=== PATIENT | female | born 1990 | race Caucasian/White ===

== ENCOUNTER 2017-11-09 22:25 | Emergency (ER) | payer MEDICAID ==
[~2017-11-09] VITALS: Ht 162.6 cm; Wt 118.8 kg
[2017-11-09 23:09] LABS: Urine Bacteria FEW /hpf (None Seen); Urine Blood Negative /uL (Negative); Urine Mucus FEW (None Seen); Urine Specific Gravity 1.027 (1.001-1.035); Urine WBC 16 /hpf (0 - 5)
[2017-11-09 23:24] LABS: Basophils # (auto) 0.1 uL; Basophils % (auto) 0.6 % (0.0-2.0); Eosinophils # (auto) 0.1 uL; Eosinophils % (auto) 1.1 % (0.0-7.0); Hematocrit 45.6 % (36.0-46.0); Hemoglobin 14.9 g/dL (12.2-16.2); Lymphocytes # (auto) 2.2 uL; Mean Corpuscular Hemoglobin 26.5 pg (28.0-32.0); Mean Corpuscular Hgb Conc. 32.6 g/dL (32.0-36.0); Mean Corpuscular Volume 81.2 fL (80.0-100.0); Monocytes % (auto) 7.9 % (0.0-12.0); Neutrophils # (auto) 9.5 uL; Neutrophils % (auto) 73.4 % (37.0-80.0); Platelet Count (auto) 321 10^3/uL (140-450); Red Blood Cells 5.62 10^6/uL (4.0-5.20); Red Cell Distribution Width 14.6 % (11.8-14.3); White Blood Cell 12.9 10^3/uL (4.4-10.8)
[2017-11-09 23:34] LABS: INR 0.96 (0.9-1.15); Partial Thromboplastin Time 31.5 sec (23.78-33.04); Prothrombin Time 10.3 sec (9.27-12.13)
[2017-11-09 23:38] LABS: Calcium 8.8 mg/dL (8.5-10.1); Potassium 3.8 mmol/L (3.5-5.1)
[2017-11-09 23:40] LABS: BUN/Creatinine Ratio 14.3
[2017-11-09 23:42] LABS: Bilirubin, Total 0.8 mg/dL (0.2-1.0); Total Protein 8.1 g/dL (6.4-8.2)
[2017-11-10] MEDS ORDERED: cefTRIAXone 1GM/10ml IVPUSH 10 ML IV ONE (00:30)
[2017-11-10] MEDS ORDERED: ONDANSETRON HCL 4 MG/2 ML VIAL IV ONE (00:30)
[2017-11-10] MEDS ORDERED: metroNIDAZOLE 500MG/100ML 100 ML IV ONE (00:30)
[2017-11-10] MEDS ORDERED: SODIUM CHLORIDE 0.9% 500 ML IV ONE (00:30)
[2017-11-10 02:29] VITALS: BP 99/48
== END 2017-11-10 02:49 | disposition home or self-care (01) ==
LOC: ER 22:25
DX: K52.9 Noninfective gastroenteritis and colitis, unspecified (principal); Z88.1 Allergy status to other antibiotic agents; Z88.5 Allergy status to narcotic agent; Z88.0 Allergy status to penicillin; Z88.2 Allergy status to sulfonamides; Z91.040 Latex allergy status
CPT/HCPCS: 36415; 74176; 80053; 81001; 81025; 82150; 83690; 85025; 85610; 85730; 96361; 96365; 96375; 99285; J0696; J2405; J3490; J7040

== ENCOUNTER 2017-12-16 16:54 | Emergency (ER) | payer MEDICAID ==
[~2017-12-16] VITALS: Ht 162.6 cm; Wt 119.3 kg
[2017-12-16 17:09] VITALS: BP 131/82
[2017-12-16] MEDS ORDERED: IPRATROPIUM BROM 0.5 MG/2.5ML INH SOL ONE (18:03)
[2017-12-16] MEDS ORDERED: ALBUTEROL SULF 2.5 MG/0.5ML(0.5%) NEB SOLN ONE (18:03)
[2017-12-16] MEDS ORDERED: HYDROcodone-ACET 10/325MG TAB PO ONE (19:30)
== END 2017-12-16 19:47 | disposition home or self-care (01) ==
LOC: ER 16:59
DX: S96.811A Strain of other specified muscles and tendons at ankle and foot level, right foot, initial encounter (principal); M21.42 Flat foot [pes planus] (acquired), left foot; M21.41 Flat foot [pes planus] (acquired), right foot; Z88.0 Allergy status to penicillin; Z88.2 Allergy status to sulfonamides; Z88.1 Allergy status to other antibiotic agents; Z88.5 Allergy status to narcotic agent; Z90.49 Acquired absence of other specified parts of digestive tract; W01.0XXA Fall on same level from slipping, tripping and stumbling without subsequent striking against object, initial encounter; Y93.01 Activity, walking, marching and hiking; Y99.8 Other external cause status; Y92.89 Other specified places as the place of occurrence of the external cause
CPT/HCPCS: 73610

== ENCOUNTER 2018-01-01 10:51 | Emergency (ER) | payer MEDICAID ==
[~2018-01-01] VITALS: Ht 162.6 cm; Wt 108.9 kg
[2018-01-01 11:06] VITALS: BP 146/74
[2018-01-01] MEDS ORDERED: IPRATROPIUM BROM 0.5 MG/2.5ML INH SOL NEB ONE (11:30)
[2018-01-01] MEDS ORDERED: ALBUTEROL SULF 2.5 MG/0.5ML(0.5%) NEB SOLN NEB ONE (11:30)
== END 2018-01-01 12:07 | disposition home or self-care (01) ==
LOC: ER 10:51
DX: J45.901 Unspecified asthma with (acute) exacerbation (principal); E07.89 Other specified disorders of thyroid
CPT/HCPCS: 94640; 99283; J7611; J7644

== ENCOUNTER 2018-01-16 03:41 | Emergency (ER) | payer MEDICAID ==
[~2018-01-16] VITALS: Ht 162.6 cm; Wt 117.2 kg
[2018-01-16 05:12] LABS: Basophils # (auto) 0.1 uL; Eosinophils # (auto) 0.2 uL; Hemoglobin 14.8 g/dL (12.2-16.2); Red Cell Distribution Width 14.1 % (11.8-14.3)
[2018-01-16 05:14] LABS: Hematocrit 45.1 % (36.0-46.0); Lymphocytes # (auto) 2.6 uL; Lymphocytes % (auto) 31.2 % (10.0-50.0); Mean Corpuscular Hemoglobin 26.7 pg (28.0-32.0); Mean Corpuscular Hgb Conc. 32.8 g/dL (32.0-36.0); Mean Corpuscular Volume 81.5 fL (80.0-100.0); Monocytes # (auto) 0.6 uL; Monocytes % (auto) 6.6 % (0.0-12.0); Neutrophils % (auto) 59.2 % (37.0-80.0); Platelet Count (auto) 301 10^3/uL (140-450); Red Blood Cells 5.54 10^6/uL (4.0-5.20); White Blood Cell 8.4 10^3/uL (4.4-10.8)
[2018-01-16 05:18] LABS: Urine Bacteria FEW /hpf (None Seen); Urine Blood 1+ /uL (Negative); Urine WBC 6 /hpf (0 - 5)
[2018-01-16 05:27] LABS: INR 0.93 (0.9-1.15); Partial Thromboplastin Time 32.7 sec (23.78-33.04)
[2018-01-16 05:32] LABS: Albumin 3.9 g/dL (3.4-5.0); BUN/Creatinine Ratio 13.2; Calcium 8.8 mg/dL (8.5-10.1); Potassium 3.9 mmol/L (3.5-5.1)
[2018-01-16 05:34] LABS: Bilirubin, Total 0.4 mg/dL (0.2-1.0); Total Protein 8.1 g/dL (6.4-8.2)
[2018-01-16] MEDS ORDERED: SODIUM CHLORIDE 0.9% 1,000 ML IV ONE (07:56)
[2018-01-16] MEDS ORDERED: PROMETHAZINE HCL 25 MG/ML 1ML IV PRN (08:00)
[2018-01-16] MEDS ORDERED: KETOROLAC TROMETH 30 MG/ML 1ML VIAL IV ONE (08:00)
[2018-01-16 09:37] VITALS: BP 122/74
== END 2018-01-16 10:37 | disposition home or self-care (01) ==
LOC: ER 03:45
DX: N39.0 Urinary tract infection, site not specified (principal); R11.0 Nausea; K92.1 Melena; E66.9 Obesity, unspecified; J45.909 Unspecified asthma, uncomplicated; E07.9 Disorder of thyroid, unspecified; Z88.1 Allergy status to other antibiotic agents; Z88.5 Allergy status to narcotic agent; Z88.0 Allergy status to penicillin; Z88.2 Allergy status to sulfonamides; Z91.040 Latex allergy status; Z90.49 Acquired absence of other specified parts of digestive tract; Z68.41 Body mass index [BMI] 40.0-44.9, adult
CPT/HCPCS: 36415; 71046; 74176; 80053; 81001; 82150; 82270; 83690; 83735; 84443; 84702; 85025; 85610; 85730; 96374; 96375; 99285; J1885; J2550; J7030

== ENCOUNTER 2018-03-22 20:21 | Emergency (ER) | payer MEDICAID ==
[~2018-03-22] VITALS: Ht 162.6 cm; Wt 117.9 kg
[2018-03-22 21:44] LABS: Basophils # (auto) 0 uL; Hemoglobin 14.9 g/dL (12.2-16.2); Lymphocytes # (auto) 1.7 uL; Red Cell Distribution Width 13.7 % (11.8-14.3); White Blood Cell 6.7 10^3/uL (4.4-10.8)
[2018-03-22 21:45] LABS: Basophils % (auto) 0.6 % (0.0-2.0); Eosinophils # (auto) 0.2 uL; Eosinophils % (auto) 2.3 % (0.0-7.0); Hematocrit 44.9 % (36.0-46.0); Mean Corpuscular Hgb Conc. 33.2 g/dL (32.0-36.0); Mean Corpuscular Volume 81.4 fL (80.0-100.0); Monocytes # (auto) 0.7 uL; Monocytes % (auto) 9.8 % (0.0-12.0); Neutrophils # (auto) 4.1 uL; Neutrophils % (auto) 61.3 % (37.0-80.0); Nucleated Red Blood Cells % 0.3 %; Platelet Count (auto) 272 10^3/uL (140-450); Red Blood Cells 5.52 10^6/uL (4.0-5.20)
[2018-03-22 22:02] LABS: Alanine Aminotransferase 29 U/L (13-56); Albumin 3.8 g/dL (3.4-5.0); Amylase 20 U/L (25-115); Anion Gap 6 (5-15); Blood Urea Nitrogen 10 mg/dL (7-18); Calcium 8.6 mg/dL (8.5-10.1); Carbon Dioxide 25 mmol/L (21-32); Chloride 109 mmol/L (98-107); Glucose 101 mg/dL (74-106); Lipase 88 U/L (73-393); Potassium 3.6 mmol/L (3.5-5.1); Sodium 140 mmol/L (136-145)
[2018-03-22 22:06] LABS: Alkaline Phosphatase 117 U/L (45-117); Aspartate Aminotransferase 16 U/L (15-37); BUN/Creatinine Ratio 15.6; Bilirubin, Total 0.6 mg/dL (0.2-1.0); GFR African American > 60 mL/min; GFR Non-African American > 60 mL/min; Total Protein 7.7 g/dL (6.4-8.2)
[2018-03-22 23:04] LABS: Urine Bacteria FEW /hpf (None Seen); Urine Blood Negative /uL (Negative); Urine Mucus FEW (None Seen); Urine Specific Gravity 1.027 (1.001-1.035); Urine WBC 9 /hpf (0 - 5)
[2018-03-22 23:17] LABS: Alcohol, Urine < 3.0 mg/dL (0-5); Amphetamine Screen, Urine NEGATIVE (NEGATIVE); Barbiturate Scree,Urine NEGATIVE (NEGATIVE); Benzodiazephine Screen, Urine NEGATIVE (NEGATIVE); Cannabinoid Screen, Urine NEGATIVE (NEGATIVE); Cocaine Screen, Urine NEGATIVE (NEGATIVE); Opiate Scree,Urine NEGATIVE (NEGATIVE); Phencyclidine Screen, Urine NEGATIVE (NEGATIVE)
[2018-03-23 05:21] VITALS: BP 123/76
== END 2018-03-23 05:25 | disposition home or self-care (01) ==
LOC: ER 20:23
DX: N39.0 Urinary tract infection, site not specified (principal); R11.2 Nausea with vomiting, unspecified; R19.7 Diarrhea, unspecified; J45.909 Unspecified asthma, uncomplicated; E07.9 Disorder of thyroid, unspecified; Z88.5 Allergy status to narcotic agent; Z88.0 Allergy status to penicillin; Z88.2 Allergy status to sulfonamides; Z88.1 Allergy status to other antibiotic agents; Z91.040 Latex allergy status; Z90.49 Acquired absence of other specified parts of digestive tract
CPT/HCPCS: 36415; 74176; 80053; 80307; 81001; 81025; 82150; 83690; 83735; 85025

== ENCOUNTER 2018-04-04 18:57 | Emergency (ER) | payer MEDICAID ==
[~2018-04-04] VITALS: Ht 162.6 cm; Wt 119.8 kg
[2018-04-04 19:20] VITALS: BP 98/72
== END 2018-04-04 23:24 | disposition home or self-care (01) ==
LOC: ER 18:57
DX: S83.91XA Sprain of unspecified site of right knee, initial encounter (principal); J45.909 Unspecified asthma, uncomplicated; Z90.49 Acquired absence of other specified parts of digestive tract; Z86.39 Personal history of other endocrine, nutritional and metabolic disease; Z88.0 Allergy status to penicillin; Z88.1 Allergy status to other antibiotic agents; Z88.6 Allergy status to analgesic agent; Z91.040 Latex allergy status; W19.XXXA Unspecified fall, initial encounter; Y93.89 Activity, other specified; Y92.59 Other trade areas as the place of occurrence of the external cause; Y99.8 Other external cause status
CPT/HCPCS: 73560

== ENCOUNTER 2018-04-09 20:45 | Emergency (ER) | payer MEDICAID ==
[~2018-04-09] VITALS: Ht 162.6 cm; Wt 102.1 kg
[2018-04-09 21:58] VITALS: BP 128/68
[2018-04-09 23:20] LABS: Basophils # (auto) 0.1 uL; Basophils % (auto) 0.7 % (0.0-2.0); Hemoglobin 15.2 g/dL (12.2-16.2); Mean Corpuscular Volume 81.2 fL (80.0-100.0); Monocytes # (auto) 0.7 uL; Neutrophils # (auto) 6.4 uL; Red Cell Distribution Width 13.9 % (11.8-14.3); White Blood Cell 10.2 10^3/uL (4.4-10.8)
[2018-04-09 23:23] LABS: Eosinophils # (auto) 0.3 uL; Eosinophils % (auto) 2.7 % (0.0-7.0); Lymphocytes # (auto) 2.7 uL; Lymphocytes % (auto) 26.9 % (10.0-50.0); Mean Corpuscular Hemoglobin 26.9 pg (28.0-32.0); Mean Corpuscular Hgb Conc. 33.2 g/dL (32.0-36.0); Monocytes % (auto) 6.7 % (0.0-12.0); Platelet Count (auto) 305 10^3/uL (140-450); Red Blood Cells 5.66 10^6/uL (4.0-5.20)
[2018-04-09 23:36] LABS: BUN/Creatinine Ratio 11.1; Calcium 8.6 mg/dL (8.5-10.1); Potassium 3.5 mmol/L (3.5-5.1)
[2018-04-09 23:46] LABS: Bilirubin, Total 0.6 mg/dL (0.2-1.0); Total Protein 8.3 g/dL (6.4-8.2)
== END 2018-04-10 05:01 | disposition home or self-care (01) ==
LOC: ER 20:58
DX: Z20.811 Contact with and (suspected) exposure to meningococcus (principal); R51 Headache; J45.909 Unspecified asthma, uncomplicated; Z90.49 Acquired absence of other specified parts of digestive tract; Z86.39 Personal history of other endocrine, nutritional and metabolic disease; Z88.0 Allergy status to penicillin; Z88.1 Allergy status to other antibiotic agents; Z88.2 Allergy status to sulfonamides; Z88.6 Allergy status to analgesic agent; Z91.040 Latex allergy status
CPT/HCPCS: 36415; 70450; 80053; 85025; 87804

== ENCOUNTER 2018-05-25 20:56 | Emergency (ER) | payer MEDICAID ==
[~2018-05-25] VITALS: Ht 162.6 cm; Wt 112.9 kg
[2018-05-25 21:21] VITALS: BP 119/71
[2018-05-25] MEDS ORDERED: ALBUTEROL SULF 2.5 MG/0.5ML(0.5%) NEB SOLN NEB ONE (22:15)
[2018-05-25] MEDS ORDERED: IPRATROPIUM BROM 0.5 MG/2.5ML INH SOL NEB ONE (22:15)
[2018-05-25] MEDS ORDERED: DEXAMETHASONE SOD PHOS 10MG/1ML VIAL INJ IM ONE (23:15)
== END 2018-05-25 23:31 | disposition home or self-care (01) ==
LOC: ER 20:59
DX: J45.901 Unspecified asthma with (acute) exacerbation (principal); J06.9 Acute upper respiratory infection, unspecified; Z90.49 Acquired absence of other specified parts of digestive tract
CPT/HCPCS: 71045; 94640; 96372; 99283; J1100; J7611; J7644

== ENCOUNTER 2018-05-29 12:43 | Inpatient (IN) | payer MEDICAID ==
[~2018-05-29] VITALS: Ht 162.6 cm; Wt 116.0 kg
[2018-05-29] MEDS ORDERED: IPRATROPIUM BROM 0.5 MG/2.5ML INH SOL NEB ONE ×2 (13:15→15:45)
[2018-05-29] MEDS ORDERED: ALBUTEROL SULF 2.5 MG/0.5ML(0.5%) NEB SOLN NEB ONE ×2 (13:15→15:45)
[2018-05-29 13:31] LABS: Eosinophils # (auto) 0.1 uL; Mean Corpuscular Volume 81.5 fL (80.0-100.0)
[2018-05-29 13:33] LABS: Basophils # (auto) 0 uL; Basophils % (auto) 0.3 % (0.0-2.0); Eosinophils % (auto) 0.8 % (0.0-7.0); Hematocrit 42.9 % (36.0-46.0); Hemoglobin 13.8 g/dL (12.2-16.2); Lymphocytes # (auto) 2.2 uL; Lymphocytes % (auto) 15.6 % (10.0-50.0); Mean Corpuscular Hemoglobin 26.2 pg (28.0-32.0); Mean Corpuscular Hgb Conc. 32.2 g/dL (32.0-36.0); Monocytes # (auto) 1.1 uL; Neutrophils # (auto) 10.7 uL; Neutrophils % (auto) 75.3 % (37.0-80.0); Platelet Count (auto) 264 10^3/uL (140-450); Red Blood Cells 5.27 10^6/uL (4.0-5.20); Red Cell Distribution Width 14.7 % (11.8-14.3); White Blood Cell 14.2 10^3/uL (4.4-10.8)
[2018-05-29 13:35] LABS: Urine Bacteria NONE SEEN /hpf (None Seen); Urine Blood Negative /uL (Negative); Urine Mucus FEW (None Seen); Urine Specific Gravity 1.037 (1.001-1.035); Urine WBC 2 /hpf (0 - 5)
[2018-05-29 13:47] LABS: Albumin 3.5 g/dL (3.4-5.0); Anion Gap 5 (5-15); Blood Urea Nitrogen 9 mg/dL (7-18); Calcium 8.8 mg/dL (8.5-10.1); Carbon Dioxide 30 mmol/L (21-32); Chloride 108 mmol/L (98-107); Glucose 137 mg/dL (74-106); Potassium 3.1 mmol/L (3.5-5.1); Sodium 143 mmol/L (136-145)
[2018-05-29 13:50] LABS: Alanine Aminotransferase 32 U/L (13-56); Aspartate Aminotransferase 12 U/L (15-37); BUN/Creatinine Ratio 12.3; GFR African American 121 mL/min; GFR Non-African American 100 mL/min
[2018-05-29 13:54] LABS: Alkaline Phosphatase 110 U/L (45-117); Bilirubin, Total 0.6 mg/dL (0.2-1.0); Total Protein 7.6 g/dL (6.4-8.2)
[2018-05-29] MEDS ORDERED: methylPREDNISolone SOD SUCC 125 MG/2 ML VL IV ONE (14:00)
[2018-05-29] MEDS ORDERED: cefTRIAXone 1GM/50ML D5W 50 ML IV ONE (14:00)
[2018-05-29] MEDS ORDERED: SODIUM CHLORIDE 0.9% 1,000 ML IV ONE (14:00)
[2018-05-29] MEDS ORDERED: POTASSIUM CHL 20 Meq TABLET PO ONE (14:45)
[2018-05-29 18:26] VITALS: BP 129/73
[2018-05-29] MEDS ORDERED: guaiFENesin 200 MG/10 ML UD PO PRN (18:30)
[2018-05-29] MEDS ORDERED: ONDANSETRON HCL 4 MG/2 ML VIAL IV PRN (18:30)
[2018-05-29 22:35] VITALS: BP 110/65
--- NOTE | 2018-05-29 22:45 | NUR ---
Received call from MANUFACTURING RECRUITER that patient was in the room @ 2234. Went to check on the patient @ 2054. The patient is awake and alert. She is accompanied by her son. Patient states that she is trying to contact various family members to pick and shovel man son. She states that she is trying to contact her brother and mother but can not get in contact with anyone. The patient is currently on 2 L O2 but is in no respiratory distress. Instructed on POC and to call for assist PRN, will continue to monitor for changes Q1hr and PRN.
[2018-05-29 23:20] VITALS: BP 110/65
--- NOTE | 2018-05-29 23:45 | NUR ---
CHARGE NURSE IS DISCUSSING THE RISKS OF HAVING A CHILD IN THE HOSPITAL. THE PATIENT STATES THAT SHE IS UNABLE TO CONTACT ANY FAMILY MEMBER TO GET HER SON.
--- NOTE | 2018-05-30 00:25 | NUR ---
THE PATIENT STATES THAT NONE OF HER FAMILY MEMBERS CAN COME COST ESTIMATING ENGINEER HER SON ZEV. SHE STATES THAT A FAMILY MEMBER CAN COME COST ESTIMATING ENGINEER HER SON IN THE MORNING. SAFETY FOR HER CHILD HAS BEEN DISCUSSED. WILL ROUND ON THE PATIENT AND SON FREQUENTLY.
[2018-05-30] MEDS ORDERED: ALBU0.084 NEB (01:06)
[2018-05-30] MEDS ORDERED: ALBUAER3 IN (01:06)
[2018-05-30] MEDS ORDERED: PREN-96 PO (01:06)
[2018-05-30 06:21] LABS: BUN/Creatinine Ratio 20.8; Calcium 8.9 mg/dL (8.5-10.1); Potassium 3.8 mmol/L (3.5-5.1)
--- NOTE | 2018-05-30 07:00 | NUR ---
PATIENT'S COUGHING HAS BECOME WORSE. RT HAS BEEN PAGED.
--- NOTE | 2018-05-30 07:03 | NUR ---
SPOKE TO MOTHER. MOTHER STATES THAT SHE IS THE ONLY SOURCE OF TRANSPORTATION FOR THE PATIENT. SHE STATES THAT SHE WILL BE ABLE TO ANIMATION DIRECTOR THE SON AT NOON.
[2018-05-30] MEDS: ACETAMINOPHEN 500 MG TAB PO PRN ×2 (07:12→11:54)
[2018-05-30] MEDS: IPRATROPIUM BROM 0.5 MG/2.5ML INH SOL NEB SCH ×2 (07:15→12:59)
[2018-05-30] MEDS: ALBUTEROL SULF 2.5 MG/0.5ML(0.5%) NEB SOLN NEB SCH ×2 (07:15→12:59)
--- NOTE | 2018-05-30 07:39 | NUR ---
CARE ENDORSED TO DAY SHIFT RN.
--- NOTE | 2018-05-30 07:45 | NUR ---
OPENING NOTE OBSERVED PT SITTING UP IN BED, NO SOB/DISTRESS NOTED. PT C/O WHEEZING, BUT STATING SHE 'FEELS BETTER' TODAY THAN YESTERDAY. NO WHEEZING HEARD AT THIS TIME, BREATHING TREATMENT RECENTLY ADMINISTERED. UPDATED PT ON POC AND PT VERBALIZED UNDERSTANDING. ENCOURAGED PT TO CONTACT STAFF FOR PRN ASSISTANCE. CALL LIGHT WITHIN REACH. FALL PRECAUTIONS IN PLACE. WILL CONTINUE TO MONITOR Q1H AND PRN. CONTINUE PT CARE.
[2018-05-30 08:13] VITALS: BP 128/79
[2018-05-30 08:14] LABS: Basophils # (auto) 0 uL; Eosinophils # (auto) 0 uL; Hematocrit 42.9 % (36.0-46.0); Hemoglobin 13.8 g/dL (12.2-16.2); Lymphocytes # (auto) 2.2 uL; Lymphocytes % (auto) 16.5 % (10.0-50.0); Mean Corpuscular Hemoglobin 26.2 pg (28.0-32.0); Mean Corpuscular Hgb Conc. 32.1 g/dL (32.0-36.0); Mean Corpuscular Volume 81.5 fL (80.0-100.0); Monocytes # (auto) 0.7 uL; Monocytes % (auto) 5.4 % (0.0-12.0); Neutrophils # (auto) 10.6 uL; Neutrophils % (auto) 78.1 % (37.0-80.0); Nucleated Red Blood Cells % 0.1 %; Platelet Count (auto) 300 10^3/uL (140-450); Red Blood Cells 5.26 10^6/uL (4.0-5.20); Red Cell Distribution Width 14.7 % (11.8-14.3); White Blood Cell 13.6 10^3/uL (4.4-10.8)
--- NOTE | 2018-05-30 08:33 | NUR ---
PT C/O SOB RECEIVED PHONE CALL STATING PATIENT WAS FEELING SHORT OF BREATH. PT ASSESSED, SEEN LAYING IN BED. SATURATING 88% ON RA. EXPIRATORY WHEEZING NOTED. PT ENCOURAGED TO SIT UP TO MAXIMIZE VENTILATION, AND TO TAKE SLOW, DEEP BREATHS. PATIENT REFUSING TO SIT UP AT THIS TIME. STATING SHE IS 'TOO TIRED'. PATIENT PLACED ON 2L NC WITH HUMIDIFIER, SATURATIONS IMPROVED TO 94%. PT EXPRESSING IMPROVEMENT IN SOB. WILL CONTINUE TO MONITOR.
--- NOTE | 2018-05-30 09:04 | NUR ---
STATUS PATIENT HAS STRONG COUGH AND CONTINUES TO C/O HEADACHE. PRN TYLENOL PREVIOUSLY ADMINISTERED BY NOC RN. PATIENT ENCOURAGED TO USE ROBITUSSIN PRN PREVIOUSLY PRESCRIBED TO AID IN COUGHING DISCOMFORT AND POSSIBLY IMPROVE HEAD DISCOMFORT R/T COUGH. PT REFUSING. PT STATING 'THAT STUFF MAKES ME TOO NAUSEOUS'. INFORMED PT THAT MEDICATION COULD BE GIVEN TO HELP WITH NAUSEA. PT CONTINUED TO REFUSE. PATIENT AWARE OF PRN MEDICATIONS AVAILABLE.
[2018-05-30] MEDS ORDERED: PANTOPRAZOLE 40 MG/10 ML VIAL IV SCH (10:00)
[2018-05-30] MEDS ORDERED: LEVOFLOXACIN 750MG 150 ML IV SCH (10:00)
--- NOTE | 2018-05-30 10:43 | NUR ---
SPUTUM SAMPLE SPUTUM COLLECTED. THICK, WHITE/LIGHT YELLOW IN COLOR. SPECIMEN SENT TO LAB VIA BULLET.
--- NOTE | 2018-05-30 11:19 | NUR ---
PT C/O IV DISCOMFORT PT C/O DISCOMFORT AT RAC IV SITE. SITE ASYMPTOMATIC, FLUSHES WITHOUT RESISTANCE. NO REDNESS/INFLAMMATION NOTED. OFFERED TO CHANGE IV SITE, PT REFUSING AT THIS TIME.
--- NOTE | 2018-05-30 11:55 | NUR ---
PT C/O HEADACHE PT C/O GENERALIZED HEADACHE. SPOKE TO MD REGARDING PT COMPLAINTS. OK TO CHANGE TYLENOL FREQUENCY TO Q4H PRN.
[2018-05-30] MEDS ORDERED: ACETAMINOPHEN 500 MG TAB PO PRN (12:00)
[2018-05-30] MEDS ORDERED: ALB5IS NEB (12:27)
[2018-05-30] MEDS ORDERED: DOXY-216 PO (12:27)
[2018-05-30 12:39] VITALS: BP 117/70
--- NOTE | 2018-05-30 12:40 | NUR ---
OXYGEN SATURATIONS PATIENTS O2 SATURATIONS CHECKED ON ROOM AIR. CURRENTLY 92-93% WITH DEEP BREATHING. NO DISTRESS NOTED. WILL CONTINUE TO MONITOR.
--- NOTE | 2018-05-30 12:47 | NUR ---
PRIMARY CARE PROVIDER PT'S LISTED PRIMARY CARE PROVIDER IS FROM [place]. PT STATING SHE RECENTLY RELOCATED TO THE AREA. CONTACTED NACHO GARCIA. NACHO TO SEE PATIENT FOR INFORMATION REGARDING OBTAINING PCP.
--- NOTE | 2018-05-30 13:38 | NUR ---
PRIMARY CARE PROVIDER NACHO GARCIA ABLE TO ESTABLISH PCP APPT. PT TO F/U WITH DR. MOURA 06/07/18 AT 8:00 AM. PT PROVIDED WITH F/U INFORMATION.
--- NOTE | 2018-05-30 15:33 | NUR ---
[facility] DC PRESCRIPTIONS DELIVERED AT BEDSIDE BY [facility].
--- NOTE | 2018-05-30 16:13 | NUR ---
STATUS PT STATING SHE WOULD LIKE TO SPEAK TO [facility] REGARDING INCIDENT THAT OCCURRED 05/30/18 ON NOC SHIFT AND INCIDENT IN EMERGENCY ROOM. SPOKE TO AUTOMATIC LATHE SETTERVANI. PT PROVIDED WITH SLY CONTACT INFORMATION.
== END 2018-05-30 17:45 | disposition home or self-care (01) | DRG 133 ==
LOC: ER 12:43 → OVERFLOW 18:20 → WEST WING 22:18
PROVIDERS: ADMIT Nurse Practitioner Acute Care; ATTEND Internal Medicine
DX: J96.00 Acute respiratory failure, unspecified whether with hypoxia or hypercapnia (principal); J18.1 Lobar pneumonia, unspecified organism; R65.10 Systemic inflammatory response syndrome (SIRS) of non-infectious origin without acute organ dysfunction; E66.01 Morbid (severe) obesity due to excess calories; J45.901 Unspecified asthma with (acute) exacerbation; Z68.41 Body mass index [BMI] 40.0-44.9, adult; J20.9 Acute bronchitis, unspecified; E05.90 Thyrotoxicosis, unspecified without thyrotoxic crisis or storm; M19.90 Unspecified osteoarthritis, unspecified site; E87.6 Hypokalemia; Z88.0 Allergy status to penicillin; Z88.2 Allergy status to sulfonamides; Z88.1 Allergy status to other antibiotic agents; Z96.659 Presence of unspecified artificial knee joint; Z91.040 Latex allergy status; Z88.5 Allergy status to narcotic agent; Z90.49 Acquired absence of other specified parts of digestive tract
CPT/HCPCS: 36415; 71045; 71046; 80048; 80053; 81001; 83036; 83735; 83880; 84443; 84484; 85025; 87070; 87205; 93005; 94640; 94761; 96365; 96366; 96375; C9113; G0378; J0696; J1956

== ENCOUNTER 2018-09-14 21:00 | Emergency (ER) | payer MEDICAID ==
[~2018-09-14] VITALS: Ht 162.6 cm; Wt 59.4 kg
[~2018-09-14 21:00] MED LIST: ALB5IS NEB; ALBU0.084 NEB; ALBUAER3 IN; DOXY-216 PO; PREN-96 PO
[2018-09-14 22:18] LABS: Basophils # (auto) 0.1 uL; Basophils % (auto) 1.1 % (0.0-2.0); Eosinophils # (auto) 0.1 uL; Eosinophils % (auto) 1.7 % (0.0-7.0); Hematocrit 43.1 % (36.0-46.0); Hemoglobin 14.1 g/dL (12.2-16.2); Lymphocytes # (auto) 2.7 uL; Lymphocytes % (auto) 32.5 % (10.0-50.0); Mean Corpuscular Hgb Conc. 32.7 g/dL (32.0-36.0); Mean Corpuscular Volume 82.5 fL (80.0-100.0); Monocytes # (auto) 0.7 uL; Monocytes % (auto) 8.6 % (0.0-12.0); Neutrophils # (auto) 4.6 uL; Neutrophils % (auto) 56.1 % (37.0-80.0); Nucleated Red Blood Cells % 0.1 %; Platelet Count (auto) 318 10^3/uL (140-450); Red Blood Cells 5.22 10^6/uL (4.0-5.20); Red Cell Distribution Width 14.2 % (11.8-14.3); White Blood Cell 8.2 10^3/uL (4.4-10.8)
[2018-09-14 22:26] LABS: Albumin 3.9 g/dL (3.4-5.0); Anion Gap 4 (5-15); Blood Urea Nitrogen 12 mg/dL (7-18); Calcium 9.2 mg/dL (8.5-10.1); Carbon Dioxide 30 mmol/L (21-32); Chloride 107 mmol/L (98-107); Glucose 105 mg/dL (74-106); Potassium 4.2 mmol/L (3.5-5.1); Sodium 141 mmol/L (136-145)
[2018-09-14 22:34] LABS: Alanine Aminotransferase 22 U/L (13-56); Alkaline Phosphatase 87 U/L (45-117); Aspartate Aminotransferase 17 U/L (15-37); Bilirubin, Total 0.4 mg/dL (0.2-1.0); GFR African American 109 mL/min; GFR Non-African American 90 mL/min; Total Protein 7.5 g/dL (6.4-8.2)
[2018-09-14 23:29] LABS: Urine Bacteria NONE SEEN /hpf (None Seen); Urine Blood Negative /uL (Negative); Urine Specific Gravity 1.018 (1.001-1.035); Urine WBC 25 /hpf (0 - 5)
[2018-09-14] MEDS ORDERED: HYDROcodone-ACET 5/325MG TAB PO ONE (23:30)
[2018-09-15 00:30] VITALS: BP 125/84
== END 2018-09-15 01:02 | disposition home or self-care (01) ==
LOC: EDBD 21:00 → ER 21:05
DX: R55 Syncope and collapse (principal); N39.0 Urinary tract infection, site not specified; J45.909 Unspecified asthma, uncomplicated; R07.9 Chest pain, unspecified; Z88.1 Allergy status to other antibiotic agents; Z88.5 Allergy status to narcotic agent; Z88.0 Allergy status to penicillin; Z88.2 Allergy status to sulfonamides; Z91.040 Latex allergy status; Z79.899 Other long term (current) drug therapy; Z90.49 Acquired absence of other specified parts of digestive tract
CPT/HCPCS: 36415; 70450; 71045; 80053; 81001; 81025; 82962; 84443; 84484; 85025; 93005